=== PATIENT | male | born 1935 ===

== ENCOUNTER 2021-12-31 05:46 | Inpatient (IN) | payer MEDICARE, OTHER ==
[~2021-12-31] VITALS: Ht 182.9 cm; Wt 90.1 kg
[2021-12-31] MEDS ORDERED: CARVEDILOL3.125 MG PO (06:05)
[2021-12-31] MEDS ORDERED: CARVEDILOL6.25 MG PO (06:05)
[2021-12-31] MEDS ORDERED: METHOTREXATE2.5 MG PO ×2 (06:06→14:10)
[2021-12-31] MEDS ORDERED: ISOSORBIDE DINI30 MG PO (06:06)
[2021-12-31] MEDS ORDERED: POTASSIUM CHLO20 ME1 PO (06:07)
[2021-12-31] MEDS ORDERED: VENTOLIN HFA18 GM INH (06:07)
[2021-12-31] MEDS ORDERED: FOLIC ACID1 MG PO ×2 (06:08→14:12)
[2021-12-31] MEDS ORDERED: MULTAQ400 MG PO (06:08)
[2021-12-31] MEDS ORDERED: ELIQUIS2.5 MG PO (06:08)
[2021-12-31] MEDS ORDERED: ADVAIR 250-501 EACH INH (06:09)
[2021-12-31] MEDS ORDERED: FUROSEMIDE80 MG PO (06:09)
[2021-12-31] MEDS ORDERED: SIMVASTATIN40 MG PO (06:09)
[2021-12-31] MEDS ORDERED: SPIRIVA RESPIMAT4 GM INH (06:10)
[2021-12-31] MEDS ORDERED: OMEPRAZOLE20 MG PO (06:10)
[2021-12-31] MEDS ORDERED: VITAMIN D325 MC4 PO (06:11)
[2021-12-31] MEDS ORDERED: LO-DOSE ASPIRIN81 MG PO (06:11)
[2021-12-31] MEDS ORDERED: FERROUS SULFAT324 MG PO (06:12)
[2021-12-31] MEDS ORDERED: CITRACAL + D M1 EACH PO (06:12)
[2021-12-31] MEDS ORDERED: NITROGLYCERIN0.4 MG SL (06:13)
[2021-12-31] MEDS ORDERED: NEBULIZER UNIT XX (06:13)
[2021-12-31] MEDS ORDERED: TRIAMCINOLONE A15 G1 TOP (06:14)
--- NOTE | 2021-12-31 13:30 | NUR ---
New ER admit. Arrived via stretcher accompanied by Angy. AOx4. O2 at 4L via oxymask. Baseline is 2.5 L NC AAT. Pt reports feeling better already. Lungs are clear and diminishhed. SBA for transfers. Skin is intact. Plan is Neb Tx, PO antibiotics and steroids. NO IVF d/t Hx of CHF.
--- NOTE | 2021-12-31 15:18 | NUR ---
Pt is resting in bed, watching TV. He was able to eat half of turkey sandwich. O2 at 2L. Call light within Pt's reach. No concerns at this time.
--- NOTE | 2021-12-31 19:05 | NUR ---
BEDSIDE REPORT RECEIVED FROM OFFGOING RNLEEROY. PT RESTING IN BED. CALL LIGHT IN REACH.
--- NOTE | 2021-12-31 22:05 | NUR ---
PT ASSESSMENT COMPLETE. PT DENIES PAIN OR NAUSEA. PT UPTO BATHROOM AND BACK TO BED WITH SBA AND FWW. TOLERATED WELL. REPORTS INCREASED SOB AFTER AMBULATION. EXPIRATORY WHEEZE AUSCULTATED TO AL LUNG JESSICA. PRODUCTIVE COUGH NOTED. WHEEZES DO NOT CLEAR WITH COUGH. IV FLUSHED WITH 10 ML NS X 2. WNL. SL. ICE WATER REFILLED. PT DENIES FURTHER NEEDS. CALL LIGHT IN REACH.
--- NOTE | 2022-01-01 00:15 | NUR ---
PT RESTING IN BED WITH EYES CLOSED. RESPIRATIONS EVEN AND UNLABORED. PT APPEARS TO BE SLEEPING. CALL LIGHT IN REACH. ROOM IN VIEW OF RN STATION.
--- NOTE | 2022-01-01 02:42 | NUR ---
PATIENT STATED HE DOES NOT NEED TO USE THE BATHROOM. DENIES ANY NEEDS AT THIS TIME. PATIENT IS PLEASANT.
--- NOTE | 2022-01-01 03:09 | NUR ---
PT ASSESSMENT COMPLETE. PT RESTING IN BED WITH EYES CLOSED. WAKES EASILY TO TOUCH. LUNG SOUNDS COARSE THROUGHOUT, NO COUGH NOTED DURING ASSESSMENT. O2 @ 2LPM VIA NC. PT DENIES NEEDS AT THIS TIME. CALL LIGHT IN REACH.
--- NOTE | 2022-01-01 05:00 | NUR ---
PT RESTING IN BED WITH EYES CLOSED. RESPIRATIONS EVEN AND UNLABORED. PT APPEARS TO BE SLEEPING. CALL LIGHT IN REACH. ROOM IN VIEW OF RN STATION.
--- NOTE | 2022-01-01 07:15 | NUR ---
Bedside report received from PAULO RN. Pt is sitting on the edge of bed. O2 at 2L. Pt reports sleeping well last night. No concerns at this time.
[2022-01-01] MEDS ORDERED: PREDNISONE20 MG PO ×2 (08:50→08:55)
[2022-01-01] MEDS ORDERED: AMOXICILLIN500 MG PO (08:53)
[2022-01-01] MEDS ORDERED: DOXYCYCLINE HY100 MG PO (08:54)
[2022-01-01] MEDS ORDERED: PRESERVISION A1 EAC1 PO (09:13)
--- NOTE | 2022-01-01 09:25 | NUR ---
MED REC COMPLETE
--- NOTE | 2022-01-02 19:05 | EKG ---
[facility] [address] [place] [id number] Signed Poor data quality, interpretation may be adversely affected Sinus rhythm with premature atrial complexes Left posterior fascicular block Nonspecific ST and T wave abnormality Abnormal ECG No previous ECGs available Confirmed by FANG LOREDO MD ([id number] on 01/02/2022 7:05:05 PM Electronically Signed By: FANG LOREDO MD 01/02/22 1905 PATIENT NAME: LOUISA SMITH Electrocardiogram DATE OF : 33 PHYSICIAN: FANG LOREDO MD REPORT #: [id number] REPORT IS CONFIDENTIAL AND NOT TO BE RELEASED WITHOUT AUTHORIZATION
== END 2022-01-01 10:17 | disposition home or self-care (01) | DRG 193 ==
LOC: ED 05:46 → MS 12:19
PROVIDERS: ADMIT Hospitalist; ATTEND Hospitalist
DX: J18.9 Pneumonia, unspecified organism (principal); J96.21 Acute and chronic respiratory failure with hypoxia; N18.4 Chronic kidney disease, stage 4 (severe); I13.0 Hypertensive heart and chronic kidney disease with heart failure and stage 1 through stage 4 chronic kidney disease, or unspecified chronic kidney disease; I50.32 Chronic diastolic (congestive) heart failure; N17.9 Acute kidney failure, unspecified; Z20.822 Contact with and (suspected) exposure to COVID-19; J43.9 Emphysema, unspecified; E78.5 Hyperlipidemia, unspecified; F32.A Depression, unspecified; M19.90 Unspecified osteoarthritis, unspecified site; I48.91 Unspecified atrial fibrillation; G47.33 Obstructive sleep apnea (adult) (pediatric); N40.0 Benign prostatic hyperplasia without lower urinary tract symptoms; I25.10 Atherosclerotic heart disease of native coronary artery without angina pectoris; Z99.81 Dependence on supplemental oxygen; Z85.828 Personal history of other malignant neoplasm of skin; Z79.01 Long term (current) use of anticoagulants; Z79.899 Other long term (current) drug therapy; Z79.82 Long term (current) use of aspirin; Z95.5 Presence of coronary angioplasty implant and graft
CPT/HCPCS: 36415; 36600; 71045; 71260; 74177; 80053; 81001; 82803; 83605; 83690; 83880; 84484; 85025; 85379; 85610; 85730; 87040; 87502; 93005; 93010; 94640; 94644; 94760; 96365; 96375; 99285-25; J0692; J0696; J2930; J7512; Q9967; U0003